=== PATIENT | female | born 1960 | race Caucasian/White ===

== ENCOUNTER → 2018-11-24 09:40 | Outpatient (CLI) | payer OTHER, SELFPAY ==
[2018-11-16 10:51] VITALS: BMI 32.8
[2018-11-24 10:52] LABS: AST(SGOT) 49 U/L (15-37); Alanine Aminotransfer ALT/SGPT 77 U/L (13-56); Albumin, Serum 4.2 g/dL (3.2-5.0); Alkaline Phosphatase 84 U/L (45-117); Anion Gap 8 (5-15); BUN 13 mg/dL (7-18); Calcium,Total 8.9 mg/dL (8.5-10.1); Chloride 104 mmol/L (98-107); Creatinine, Serum 0.76 mg/dL (0.55-1.02); EST Glomerular Filtration Rate 82 mL/min (>60); Est Glom Filt Rate - Afr Amer 99 mL/min (>60); Globulin 4.3 g/dL (2.2-4.2); Glucose 88 mg/dL (74-106); Potassium 3.6 mmol/L (3.5-5.1); Protein, Total 8.5 g/dL (6.4-8.2); Sodium Level 139 mmol/L (136-145)
== END ==
PROVIDERS: Family Provider Family Medicine; PCP Family Medicine; Referring Provider Family Medicine; Visit Provider Family Medicine
DX: I10 Essential (primary) hypertension (principal)
CPT/HCPCS: 36415; 80053; 84443

== ENCOUNTER → 2018-11-29 08:41 | Outpatient (CLI) | payer OTHER, SELFPAY ==
[2018-11-16 10:51] VITALS: BMI 32.8
--- NOTE | 2018-11-29 08:46 | US_ITS ---
STUDY: ABDOMINAL ULTRASOUND - RIGHT UPPER QUADRANT REASON FOR VISIT: Female, 58 years old. Elevated liver enzymes TECHNIQUE: Ultrasound evaluation of the right upper quadrant was performed with real-time and static mercedes-scale imaging. TECHNICAL QUALITY: Adequate. COMPARISON: None. FINDINGS: Liver: The liver measures 17.5 cm. Fatty infiltration of the liver The bile ducts are within normal limits. There is hepatic color flow. The direction of portal flow is hepatopetal. There is no demonstrated mass lesion. Gallbladder: Normal distended gallbladder. The gallbladder wall measures 2.0 mm. There is a negative sonographic Monaco's sign. There is no pericholecystic fluid. There are no gallstones. Common Bile Duct (C.B.D.): The common bile duct measures 4.0 mm. Pancreas: Normal size of the head, body and tail of the pancreas. There is normal echogenicity of the pancreas. There is no demonstrated pancreatic mass or cyst. Right Kidney: Normal size of the right kidney. The right kidney measures 10.6 x 5.8 x 4.5 cm. Normal renal cortex. The right cortex measures 1.6 cm. There is no demonstrated renal mass or cyst. There is no right hydronephrosis. US/Liver IMPRESSION: Fatty infiltration of the liver. No gallstones. Electronically Signed: Layo Sandoval MD at 7:40 EST Tel , Service support ,
== END ==
PROVIDERS: Family Provider Family Medicine; PCP Family Medicine; Referring Provider Family Medicine; Visit Provider Family Medicine
DX: I10 Essential (primary) hypertension (principal)
CPT/HCPCS: 76705

== ENCOUNTER → 2019-01-10 10:56 | Outpatient (CLI) | payer OTHER, SELFPAY ==
[2019-01-10 10:39] VITALS: BMI 32.5
[2019-01-10 12:45] LABS: AST(SGOT) 45 U/L (15-37); Alanine Aminotransfer ALT/SGPT 75 U/L (13-56); Alkaline Phosphatase 69 U/L (45-117); Bilirubin, Direct 0.07 mg/dL (0.00-0.30); Globulin 3.8 g/dL (2.2-4.2); Protein, Total 7.8 g/dL (6.4-8.2); T4 Free Direct 0.84 ng/dL (0.76-1.46)
[2019-01-11 17:38] LABS: Thyroid Peroxidase AB 130 IU/mL (0-34)
[2019-01-13 17:14] LABS: Thyroglobulin Antibody < 1.0 IU/mL (0.0-0.9)
== END ==
PROVIDERS: Family Provider Family Medicine; PCP Family Medicine; Visit Provider Family Medicine
DX: I10 Essential (primary) hypertension (principal); K76.0 Fatty (change of) liver, not elsewhere classified
CPT/HCPCS: 36415; 80076; 84439; 86376; 86800

== ENCOUNTER → 2020-08-12 | Outpatient (CLI) | payer OTHER, SELFPAY ==
[2019-09-07 09:54] VITALS: BMI 32.5
[2020-08-12 11:27] LABS: Anion Gap 8 (5-15); BUN 18 mg/dL (7-18); BUN/Creat Ratio 24.8 RATIO (10-20); Calcium,Total 9.1 mg/dL (8.5-10.1); Chloride 109 mmol/L (98-107); Creatinine, Serum 0.72 mg/dL (0.55-1.02); EST Glomerular Filtration Rate 87 mL/min (>60); Est Glom Filt Rate - Afr Amer 105 mL/min (>60); Free T3 2.4 pg/mL (2.18-3.98); Glucose 93 mg/dL (74-106); Potassium 4.1 mmol/L (3.5-5.1); Sodium Level 142 mmol/L (136-145); T4 Free Direct 0.84 ng/dL (0.76-1.46); Thyroid Stim Hormone (TSH) 8.84 uIU/mL (0.358-3.74)
== END | disposition home or self-care (01) ==
LOC: MTLAB 09:12
PROVIDERS: PCP Family Medicine
DX: E06.3 Autoimmune thyroiditis (principal); E66.9 Obesity, unspecified
CPT/HCPCS: 36415; 80048; 83036; 84439; 84443; 84481

== ENCOUNTER → 2021-02-24 09:06 | Outpatient (CLI) | payer OTHER, SELFPAY ==
[2020-10-24 09:14] VITALS: BMI 31.3
[2021-02-24 12:47] LABS: Hemoglobin A1c 6.1 % (3.8-5.6)
[2021-02-24 13:02] LABS: Anion Gap 4 (5-15); BUN 16 mg/dL (7-18); BUN/Creat Ratio 22.7 RATIO (10-20); Calcium,Total 8.6 mg/dL (8.5-10.1); Chloride 107 mmol/L (98-107); Creatinine, Serum 0.71 mg/dL (0.55-1.02); EST Glomerular Filtration Rate 89 mL/min (>60); Est Glom Filt Rate - Afr Amer 108 mL/min (>60); Free T3 2.6 pg/mL (2.18-3.98); Glucose 83 mg/dL (74-106); Sodium Level 140 mmol/L (136-145); T4 Free Direct 0.78 ng/dL (0.76-1.46); Thyroid Stim Hormone (TSH) 9.23 uIU/mL (0.358-3.74)
== END ==
PROVIDERS: PCP Family Medicine
DX: E06.3 Autoimmune thyroiditis (principal); R63.5 Abnormal weight gain
CPT/HCPCS: 36415; 80048; 83036; 84439; 84443; 84481

== ENCOUNTER → 2021-06-02 08:20 | Outpatient (CLI) | payer OTHER, SELFPAY ==
[2020-10-24 09:14] VITALS: BMI 31.3
[2021-06-02 12:16] LABS: Anion Gap 3 (5-15); BUN 17 mg/dL (7-18); BUN/Creat Ratio 25.7 RATIO (10-20); Chloride 107 mmol/L (98-107); Creatinine, Serum 0.66 mg/dL (0.55-1.02); EST Glomerular Filtration Rate 96 mL/min (>60); Est Glom Filt Rate - Afr Amer 116 mL/min (>60); Glucose 88 mg/dL (74-106); Potassium 4.2 mmol/L (3.5-5.1); Sodium Level 139 mmol/L (136-145)
[2021-06-02 12:19] LABS: Hemoglobin A1c 6.1 % (3.8-5.6)
== END ==
PROVIDERS: PCP Family Medicine; Referring Provider Internal Medicine Endocrinology, Diabetes & Metabolism; Visit Provider Internal Medicine Endocrinology, Diabetes & Metabolism
DX: R73.03 Prediabetes (principal)
CPT/HCPCS: 36415; 80048; 83036

== ENCOUNTER → 2021-09-09 08:13 | Outpatient (CLI) | payer OTHER, SELFPAY ==
[2021-09-09 12:39] LABS: Anion Gap 6 (5-15); BUN 13 mg/dL (7-18); BUN/Creat Ratio 17.1 RATIO (10-20); Chloride 106 mmol/L (98-107); Creatinine, Serum 0.76 mg/dL (0.55-1.02); EST Glomerular Filtration Rate 82 mL/min (>60); Est Glom Filt Rate - Afr Amer 99 mL/min (>60); Free T3 2.8 pg/mL (2.18-3.98); Glucose 87 mg/dL (74-106); Hemoglobin A1c 6.1 % (3.8-5.6); Potassium 4.4 mmol/L (3.5-5.1); Sodium Level 140 mmol/L (136-145); T4 Free Direct 0.82 ng/dL (0.76-1.46)
== END ==
DX: E06.3 Autoimmune thyroiditis (principal); E66.9 Obesity, unspecified; R63.5 Abnormal weight gain
CPT/HCPCS: 36415; 80048; 83036; 84439; 84443; 84481

== ENCOUNTER → 2022-03-12 | Outpatient (CLI) | payer OTHER, SELFPAY ==
[2022-03-12 12:29] LABS: Hemoglobin A1c 6.5 % (3.8-5.6)
[2022-03-12 12:46] LABS: Anion Gap 5 (5-15); BUN 12 mg/dL (7-18); BUN/Creat Ratio 15.7 RATIO (10-20); Calcium,Total 9.3 mg/dL (8.5-10.1); Chloride 107 mmol/L (98-107); Creatinine, Serum 0.76 mg/dL (0.55-1.02); EST Glomerular Filtration Rate 81 mL/min (>60); Est Glom Filt Rate - Afr Amer 98 mL/min (>60); Free T3 2.5 pg/mL (2.18-3.98); Glucose 94 mg/dL (74-106); Potassium 4.6 mmol/L (3.5-5.1); Sodium Level 139 mmol/L (136-145); T4 Free Direct 0.81 ng/dL (0.76-1.46); Thyroid Stim Hormone (TSH) 9.14 uIU/mL (0.358-3.74)
== END | disposition home or self-care (01) ==
LOC: BIMLAB 10:26
DX: E06.3 Autoimmune thyroiditis (principal); E66.9 Obesity, unspecified
CPT/HCPCS: 36415; 80048; 83036; 84439; 84443; 84481

== ENCOUNTER → 2022-06-19 | Outpatient (CLI) | payer OTHER, SELFPAY ==
[2022-06-19 12:47] LABS: Hemoglobin A1c 6.4 % (3.8-5.6)
[2022-06-19 12:56] LABS: Anion Gap 7 (5-15); BUN 20 mg/dL (7-18); BUN/Creat Ratio 29.5 RATIO (10-20); Calcium,Total 9.2 mg/dL (8.5-10.1); Chloride 106 mmol/L (98-107); Creatinine, Serum 0.68 mg/dL (0.55-1.02); EST Glomerular Filtration Rate 93 mL/min (>60); Est Glom Filt Rate - Afr Amer 113 mL/min (>60); Free T3 2.3 pg/mL (2.18-3.98); Glucose 93 mg/dL (74-106); Potassium 4.6 mmol/L (3.5-5.1); Sodium Level 140 mmol/L (136-145); T4 Free Direct 0.75 ng/dL (0.76-1.46); Thyroid Stim Hormone (TSH) 8.52 uIU/mL (0.358-3.74)
== END | disposition home or self-care (01) ==
LOC: BIMLAB 09:24
PROVIDERS: PCP Family Medicine
DX: E66.9 Obesity, unspecified (principal); E06.3 Autoimmune thyroiditis
CPT/HCPCS: 36415; 80048; 83036; 84439; 84443; 84481

== ENCOUNTER → 2022-10-20 | Outpatient (CLI) | payer OTHER, SELFPAY ==
[2022-10-20 13:21] LABS: Hemoglobin A1c 6.2 % (3.8-5.6)
[2022-10-20 13:27] LABS: Anion Gap 10 (5-15); BUN 16 mg/dL (7-18); BUN/Creat Ratio 20.2 RATIO (10-20); Calcium,Total 9.2 mg/dL (8.5-10.1); Chloride 105 mmol/L (98-107); Creatinine, Serum 0.79 mg/dL (0.55-1.02); EST Glomerular Filtration Rate 78 mL/min (>60); Est Glom Filt Rate - Afr Amer 94 mL/min (>60); Free T3 2.5 pg/mL (2.18-3.98); Glucose 90 mg/dL (74-106); Potassium 4.1 mmol/L (3.5-5.1); Sodium Level 139 mmol/L (136-145); T4 Free Direct 0.78 ng/dL (0.76-1.46); Thyroid Stim Hormone (TSH) 7.94 uIU/mL (0.358-3.74)
== END | disposition home or self-care (01) ==
PROVIDERS: PCP Family Medicine; Visit Provider Family Medicine
DX: R63.5 Abnormal weight gain (principal); E06.3 Autoimmune thyroiditis; E66.9 Obesity, unspecified
CPT/HCPCS: 36415; 80048; 83036; 84439; 84443; 84481

== ENCOUNTER → 2023-03-05 | Outpatient (CLI) | payer OTHER, SELFPAY ==
[2023-03-05 12:50] LABS: Hemoglobin A1c 6.5 % (3.8-5.6)
[2023-03-05 12:59] LABS: Anion Gap 6 (5-15); BUN 18 mg/dL (7-18); Calcium,Total 9.4 mg/dL (8.5-10.1); Chloride 105 mmol/L (98-107); Creatinine, Serum 0.75 mg/dL (0.55-1.02); EST Glomerular Filtration Rate 83 mL/min (>60); Est Glom Filt Rate - Afr Amer 100 mL/min (>60); Free T3 2.5 pg/mL (2.18-3.98); Glucose 92 mg/dL (74-106); Potassium 5.1 mmol/L (3.5-5.1); Sodium Level 139 mmol/L (136-145); T4 Free Direct 0.81 ng/dL (0.76-1.46); Thyroid Stim Hormone (TSH) 6.64 uIU/mL (0.358-3.74)
== END | disposition home or self-care (01) ==
LOC: BIMLAB 09:06
PROVIDERS: PCP Family Medicine
DX: R63.5 Abnormal weight gain (principal); E66.9 Obesity, unspecified; E06.3 Autoimmune thyroiditis
CPT/HCPCS: 36415; 80048; 83036; 84439; 84443; 84481

== ENCOUNTER → 2023-09-02 | Outpatient (CLI) | payer OTHER, SELFPAY ==
[2023-09-02 12:46] LABS: Anion Gap 4 (5-15); BUN 19 mg/dL (7-18); Calcium,Total 9.2 mg/dL (8.5-10.1); Chloride 106 mmol/L (98-107); Creatinine, Serum 0.76 mg/dL (0.55-1.02); EST Glomerular Filtration Rate 81 mL/min (>60); Est Glom Filt Rate - Afr Amer 98 mL/min (>60); Glucose 96 mg/dL (74-106); Potassium 4.7 mmol/L (3.5-5.1); Sodium Level 140 mmol/L (136-145)
[2023-09-02 13:02] LABS: Hemoglobin A1c 6.1 % (3.8-5.6)
== END | disposition home or self-care (01) ==
LOC: BIMLAB 09:36
PROVIDERS: PCP Family Medicine; Referring Provider Family Medicine; Visit Provider Family Medicine
DX: I10 Essential (primary) hypertension (principal); R73.03 Prediabetes
CPT/HCPCS: 36415; 80048; 83036

== ENCOUNTER → 2024-07-19 | Outpatient (CLI) | payer OTHER, SELFPAY ==
[2024-07-19 12:31] LABS: Hemoglobin A1c 6.3 % (3.8-5.6)
[2024-07-19 12:54] LABS: ALB/GLOB Ratio 1.1 RATIO (0.9-2.4); AST(SGOT) 20 U/L (15-37); Alanine Aminotransfer ALT/SGPT 31 U/L (13-56); Albumin, Serum 3.9 g/dL (3.2-5.0); Alkaline Phosphatase 70 U/L (45-117); Anion Gap 6 (5-15); BUN 14 mg/dL (7-18); Calcium,Total 9.5 mg/dL (8.5-10.1); Chloride 105 mmol/L (98-107); Creatinine, Serum 0.82 mg/dL (0.55-1.02); EST Glomerular Filtration Rate 74 mL/min (>60); Est Glom Filt Rate - Afr Amer 89 mL/min (>60); Globulin 3.6 g/dL (2.2-4.2); Glucose 96 mg/dL (74-106); Potassium 4.4 mmol/L (3.5-5.1); Protein, Total 7.5 g/dL (6.4-8.2); Sodium Level 140 mmol/L (136-145)
== END | disposition home or self-care (01) ==
LOC: BIMLAB 08:58
PROVIDERS: PCP Family Medicine; Referring Provider Family Medicine; Visit Provider Family Medicine
DX: E03.9 Hypothyroidism, unspecified (principal); I10 Essential (primary) hypertension; R73.03 Prediabetes
CPT/HCPCS: 36415; 80053; 83036; 84443

== ENCOUNTER → 2025-03-08 | Outpatient (CLI) | payer OTHER, SELFPAY | END | disposition home or self-care (01) | LOC: BIMLAB 09:14 | PROVIDERS: PCP Family Medicine; Referring Provider Family Medicine; Visit Provider Family Medicine | DX: E03.9 Hypothyroidism, unspecified (principal) | CPT/HCPCS: 36415; 84439; 84443 ==

== ENCOUNTER → 2025-07-03 | Outpatient (CLI) | payer OTHER, SELFPAY ==
--- OUTSIDE RECORDS SUMMARY | 2025-07-03 17:56 | XMS RPT_ITS | CCD ---
Author Organization [facility] Care Team Providers Care Occupational Therapy Professor Name Role Phone JIL GENTILE DO Primary Care Physician Dr. Jil Gentile Attending Provider [phone] Dr. Jil Gentile Primary Care Provider [phone] Dr. Jil Gentile Attending Provider [phone] Dr. Jil Gentile Referring Provider [phone] Dr. Jil Gentile DO Primary Care Provider Dr. Jil Gentile DO Attending Provider [phone] Dr. Jil Gentile DO Referring Provider [phone] Sixto Cedillo Attending Provider [phone] Brown, Jil R Referring Unavailable Brown, Jil R Primary Care Unavailable Brown, Jil R Attending Unavailable Brown, Jil R Primary Care Unavailable Brown, Jil R Attending Unavailable Brown, Jil R Referring Unavailable Brown, Jil R Primary Care Unavailable Brown, Jil R Attending Unavailable Brown, Jil R Referring Unavailable Brown, Jil R Primary Care Unavailable Brown, Jil R Attending Unavailable Brown, Jil R Referring Unavailable Brown, Jil R Primary Care Unavailable Sixto Cedillo Attending Unavailable Seferino, Jil R Referring Unavailable Medications Current Medications Medication Drug Class(es) Dates Sig (Normalized) Sig (Original) levothyroxine sodium 0.05 mg oral tablet (1 source) l-Thyroxine Start: 08-07-2016 levothyroxine 50 mcg (0.05 mg) oral tablet Dose : 50 mcg = 1 tab(s), Oral, qDayAC, 0 Refill(s) Start Date: 08/07/16 Status: Ordered Tirzepatide (Weight Loss) (1 source) Start: 05-22-2025 Tirzepatide (Weight Loss) 5 mg/0.5 mL solution Active 5 mg SC EVERY WEEK May 22, 2025 4:01pm Phone number [phone] [email or web address] Completed/Discontinued Medications Medication Drug Class(es) Dates Sig (Normalized) Sig (Original) lisinopril 20 mg oral tablet (20 sources) Angiotensin Converting Enzyme Inhibitor Start: 11-16-2018 End: 04-27-2025 take 1 tablet by mouth once daily Lisinopril 20 mg tablet Discontinued 20 mg PO DAILY 90 0 April 21, 2023 4:55pm May 20, 2023 2:02pm Hypertension Essential (primary) hypertension blood pressure thyroid (assisted) 15 mg oral tablet (9 sources) Start: 09-07-2019 End: 10-24-2020 take 1 tablet by mouth once daily Thyroid (Pork) (Hutchinson Thyroid) 15 mg tablet Discontinued 15 mg PO DAILY September 07, 2019 1:00am October 24, 2020 10:11am Tirzepatide (Mounjaro) 2.5 mg/0.5 mL pen injector (4 sources) Start: 03-13-2025 End: 04-04-2025 Tirzepatide (Mounjaro) 2.5 mg/0.5 mL pen injector Discontinued 2.5 mg SC EVERY WEEK 2 March 13, 2025 12:00am April 04, 2025 1:45pm for 4 weeks Start: 03-13-2025 Tirzepatide (M ounjaro) 2.5 mg/0.5 mL pen injector Active 2.5 mg SC EVERY WEEK 2 March 13, 2025 12:00am for 4 weeks Tirzepatide (Weight Loss) (6 sources) Start: 04-27-2025 End: 05-22-2025 Tirzepatide (Weight Loss) (Z epbound) 2.5 mg/0.5 mL solution Discontinued 2.5 mg SC EVERY WEEK April 27, 2025 10:02am May 22, 2025 4:02pm Phone number [phone] [email or web address] Start: 04-27-2025 Tirzepatide (W eight Loss) (Zepbound) 2.5 mg/0.5 mL solution Active 2.5 mg SC EVERY WEEK 2 28 2 April 27, 2025 10:02am Phone number [phone] [email or web address] Start: 04-04-2025 End: 04-27-2025 Tirzepatide (Weight Loss) (Z epbound) 2.5 mg/0.5 mL solution Discontinued 2.5 mg SC EVERY WEEK 2 28 0 April 04, 2025 1:46pm May 01, 2025 12:00am April 27, 2025 10:03am Phone number [phone] [email or web address] Start: 04-04-2025 End: 04-04-2025 Tirzepatide (Weight Loss) (Z epbound) 2.5 mg/0.5 mL solution Discontinued 2.5 mg SC EVERY WEEK 2 28 0 April 04, 2025 12:00am May 01, 2025 12:00am April 04, 2025 1:47pm Problems Problem Classification Problem Date Documented Date Episodic/Chronic Diabetes mellitus without complication (17 sources) Prediabetes; Translations: [Prediabetes] Onset: 03-13-2025 Episodic Comment on above: She cannot continue to afford the $500 a month for Zepbound and is investigating getting molecule from unapproved sources. Essential hypertension (18 sources) Hypertensive disorder; Translations: [Essential (primary) hypertension] Onset: 07-19-2024 Chronic Fluid and electrolyte disorders (1 source) Dehydration; Translations: [Dehydration] Onset: 10-05-2021 Episodic Other connective tissue disease (7 sources) Trochanteric bursitis; Translations: [Trochanteric bursitis, left hip] 07-19-2024 Episodic Other liver diseases (2 sources) Non-alcoholic fatty liver; Translations: [Fatty (change of) liver, not elsewhere classified] Chronic Other liver diseases (12 sources) Fatty (change of) liver, not elsewhere classified; Translations: [Nonalcoholic fatty liver disease] 01-10-2019 Chronic Other non-traumatic joint disorders (4 sources) Pain in left knee; Translations: [Left knee pain] 07-19-2024 Episodic Other screening for suspected conditions (not mental disorders or infectious disease) (10 sources) Raised TSH level; Translations: [Other specified abnormal findings of blood chemistry] 01-10-2019 Episodic Thyroid disorders (14 sources) Hypothyroidism; Translations: [Hypothyroidism, unspecified] Onset: 03-13-2025 09-07-2019 Chronic Results Test Name Value Interpretation Reference Range Facility Internal Medicine Office Vis rajni 04-27-2025 Internal Medicine Office Visit [facility] [address] [place] [address] OFFICE VISIT Date of Service: 04/27/25 MR#: [id number] Acct: [id number] Name: ETELVINA BUTCHER Rep #: [id number] : 1960 Provider: JEFERSON Whittaker Age/Sex: 64/F Location: [facility] Status: Signed Intake Vital Signs 03/13/25 09:30 04/27/25 09:35 Height 5 ft 6 in 5 ft 6 in Weight: 197 lb 181 lb BMI 31.8 29.2 BP 144/92 H 124/78 H Blood Pressure Location Lt brachial Lt brachial Position Sitting Sitting Respiration 18 16 Pulse 69 61 Pulse Source Monitor Monitor Temp 98.0 F 97.9 F Temp Source Temporal Temporal Pulse Oximetry (%) 97 97 Oxygen Delivery Method room air Intake Visit Reasons: ACUTE - 7 WK FU Chief Complaint: F/U Ui Developer With Angular Js Required: No Accompanied by: Self Is patient in pain?: No Allergies No Known Allergies Allergy (Verified 04/27/25 09:36) Medications ???Medication ???Instructions ???Recorded ???Confirmed ???Type tirzepatide (weight loss) 2.5 2.5 mg (0.5 mL) subcut QWEEK 4 09/1104/27/25 Rx mg/0.5 mL subcutaneous solution weeks #2 mL (Zepbound) Have you fallen in the past year?: No Nurse's Note: F/U for Zepbound [facility] Medical History Hypothyroid Hypertension Surgical History History of breast biopsy Family History Grandmother Hypertension CVA (cerebral vascular accident) Aunt Hypertension Social History Smoking Status: Never smoker alcohol intake: never substance use type: does not use what type of physical activity do you participate in: walking HPI HPI Chief Complaint: F/U Details: ETELVINA BUTCHER, is a 64 F who presents to the office today for f/u after starting zepbound about 2 months ago and was told to f/u. Patient has been taking the shot without any side effects or tolerance issues. She states she has been trying to do better with her dietary intake. She states that it has never been real good but with the medication she is definitely eating less. She is not really doing a lot of regular exercise at the same time is going to be trying to increase this. She has continued to show decrease in her weight and thus is happy. She states as soon as she started the Zepbound her blood pressure improved and she ended up stopping her BP medication and has not gone back to it (so been off for 2 months) ROS Const Constitutional: No body ache, chills, excessive sweating, fatigue, fever(s), frequent falls, headache(s), snoring, weakness, weight change, sleep problems or change in appetite Eyes Eyes: No blurry vision, change in vision, eye pain or Light sensitivity ENT ENT: No abnormal hearing, ear or mastoid pain, tinnitus, nasal congestion, headache(s), neck pain or sore throat Resp Respiratory: No cough, shortness of breath, snoring or wheezing Cardio Cardiology: No chest pain at rest, chest pain with exertion, excessive sweating, shortness of breath, lightheadedness, orthopnea or palpitations Gastro GI: No abdominal pain, change in bowel habits, constipation, cramping, diarrhea, nausea/dyspepsia or vomiting Genitourinary-Fem evita: No burning urination, painful urination, urinary incontinence, urinary frequency, abnormal vaginal bleeding or pelvic pain Musc Musculoskeletal: No abnormal gait, joint pain, back pain, limited range of motion, neck pain, numbness or tingling Skin Skin: No dry skin, redness, lesions, itchy eyes, rash or wounds Neuro Neurology: No abnormal gait, abnormal hearing, abnormal speech, dizziness, weakness, frequent falls, headache(s), memory loss, numbness or tingling Psych Psychiatric: No anxiety, No change in appetite, No depression, No memory loss and No Thoughts of harming yourself/Others Endo Endocrine: No cold intolerance, excessive sweating, fatigue, flushing, heat intolerance, increased thirst/drinking, increased hunger or weight change Aller/Imm Allergy/Immunolog ic: No itchy eyes, seasonal allergy symptoms, hives or wheezing Massimo/Lymp Hematologic/Lymph atic: No easy bleeding, easy bruising, enlarged lymph nodes or other Exam Const General: cooperative, healthy appearing, comfortable, no acute distress, well developed and well groomed Nutritional Appearance: overweight Orientation: alert, awake and oriented x3 HENMT Head: normocephalic and atraumatic Ears: hearing grossly normal bilaterally Neck Neck: no lymphadenopathy, supple and nontender Resp Effort Inspection: normal respiratory effort, able to speak in complete sentences, symmetric chest movement and normal respiratory pattern Auscultation: Bilateral: Clear to Auscultation Cardio Rate: regular rate (more content not included)... Normal [facility] Internal Medicine Office Vis itogopal 03-13-2025 Internal Medicine Office Visit [facility] [address] [place] [address] [place] [address] OFFICE VISIT Date of Service: 03/13/25 MR#: [id number] Acct: [id number] Name: ETELVINA BUTCHER Rep #: [id number] : 1960 Provider: Dr. Jil pace, DO Age/Sex: 64/F Location: [facility] [place] Status: Signed Intake Vital Signs 07/19/24 08:31 03/13/25 09:30 Height 5 ft 6 in 5 ft 6 in Weight: 197 lb 197 lb BMI 31.8 31.8 BP 144/86 H 144/92 H Blood Pressure Location Lt brachial Lt brachial Position Sitting Sitting Respiration 17 18 Pulse 74 69 Pulse Source Monitor Monitor Temp 97.6 F L 98.0 F Temp Source Temporal Temporal Pulse Oximetry (%) 100 97 Oxygen Delivery Method room air room air Intake Visit Reasons: go over labs Chief Complaint: go over labs Is patient in pain?: No Allergies No Known Allergies Allergy (Verified 03/13/25 09:30) Medications ???Medication ???Instructions ???Recorded ???Confirmed ???Type lisinopril 20 mg tablet 20 mg PO DAILY blood pressure #90 07/19/24 03/13/25 Rx tabs tirzepatide 2.5 mg/0.5 mL 2.5 mg (0.5 mL) subcut QWEEK #2 mL 03/13/25 03/13/25 Rx subcutaneous pen injector (Mounjaro) Have you fallen in the past year?: No Nurse's Note: Patient provided sample box of Mounjaro 2.5 mg. This nurse instructed patient on self- administration; patient administered first injection correctly without any difficulty. Patient advised to schedule FU in 6-[address] Gentile and to call with any concerns before then. Patient verbalized understanding. Prior authorization process for Mounjaro reviewed with patient. [facility] Medical History Hypothyroid Hypertension Surgical History History of breast biopsy Family History Grandmother Hypertension CVA (cerebral vascular accident) Aunt Hypertension Social History Smoking Status: Never smoker alcohol intake: never substance use type: does not use what type of physical activity do you participate in: walking HPI HPI Chief Complaint: go over labs Details: ETELVINA BUTCHER, is a 64 F who presents to the office today for a visit to start Mounjaro for her diabetes. Her hemoglobin A1c's are stable but she is 200 pounds and easily 50 pounds overweight she has tried to lose weight but has been unsuccessful so she wants to start Mounjaro to control her blood sugars as well as to lose weight. ROS Const Constitutional: No body ache, chills, excessive sweating, fatigue, fever(s), frequent falls, headache(s), snoring, weight change, sleep problems, abnormal sleep pattern or change in appetite Eyes Eyes: No blurry vision, change in vision, eye pain or Light sensitivity ENT ENT: No abnormal hearing, ear or mastoid pain, tinnitus, nasal congestion, headache(s), neck pain or sore throat Resp Respiratory: No cough, shortness of breath, snoring or wheezing Cardio Cardiology: No chest pain at rest, chest pain with exertion, excessive sweating, shortness of breath, dyspnea on exertion, lightheadedness, orthopnea or palpitations Gastro GI: No abdominal pain, change in bowel habits, constipation, cramping, diarrhea, nausea/dyspepsia or vomiting Genitourinary-Fem evita: No burning urination, painful urination, urinary incontinence, urinary frequency, abnormal vaginal bleeding or pelvic pain Musc Musculoskeletal: No abnormal gait, joint pain, back pain, limited range of motion, neck pain, numbness or tingling Skin Skin: No dry skin, redness, lesions, itchy eyes, rash or wounds Neuro Neurology: No abnormal gait, abnormal hearing, frequent falls, headache(s), memory loss, numbness or tingling Psych Psychiatric: No abnormal sleep pattern, No anxiety, No change in appetite, No irritability, No memory loss and No Thoughts of harming yourself/Others Endo Endocrine: No cold intolerance, excessive sweating, fatigue, flushing, heat intolerance, increased thirst/drinking, increased hunger or weight change Aller/Imm Allergy/Immunolog ic: No itchy eyes, seasonal allergy symptoms, hives or wheezing Massimo/Lymp Hematologic/Lymph atic: No easy bleeding, easy bruising, enlarged lymph nodes or other Exam Const General: cooperative and healthy appearing Nutritional Appearance: overweight HENMT Head: normal to inspection Ears: hearing grossly normal bilaterally Eyes General: appearance normal, both eyes and all related structures Neck Neck: normal visual inspection Resp Effort Inspection: normal respiratory effort and able to speak in complete sentences Cardio Rate: regular rate Rhythm: regular rhythm Musc Musculoskeletal: Yes joint tenderness (Mild discomfo (more content not included)... Normal [facility] - Hematology and Cell countsOrdered By: Jil Gentile on 03-13-2025 HbA1c (Bld) [Mass fraction] 6.2 % 4.2-6.3 [facility] T4 Free Directon 03-08-2025 T4 FREE DIRECT 0.90 ng/dL Normal 0.76-1.46 [facility] Comment on above: Performed By: #### L 506.0400, L501.9520 #### [facility] [place], [address] T4 freeOrdered By: Jil arreola on 03-08-2025 Free T4 [Mass/Vol] 0.90 ng/dL 0.76-1.46 [facility] TSH DL <= 0.005 mIU/L QnOrde red By: Jil Gentile on 03-08-2025 TSH Qn 6.830 uIU/mL High 0.300-4.200 [facility] Thyroid Stim Hormone (TSH)on 03-08-2025 TSH 6.830 uIU/mL High 0.300-4.200 [facility] Comment on above: Performed By: #### L 506.0400, [id number] #### [facility] [address] [place], [address] Comprehensive Metabolic Prof uton 07-19-2024 Albumin [Mass/Vol] 3.9 g/dL Normal 3.2-5.0 [facility] Comment on above: Performed By: #### L 500.4050, L501.9985, [id number] #### [facility] [address] [place], [address] Albumin/Globulin [Mass ratio] 1.1 {ratio} Normal 0.9-2.4 [facility] Comment on above: Performed By: #### L 500.4050, L501.9985, [id number] #### [facility] [address] [place], [address] ALK P 70 U/L Normal 45-117 [facility] Comment on above: Performed By: #### L 500.4050, L501.9985, [id number] #### [facility] [address] [place], [address] ALT [Catalytic activity/Vol] 31 U/L Normal 13-56 [facility] Comment on above: Performed By: #### L 500.4050, L501.9985, [id number] #### [facility] [address] [place], [address] AST [Catalytic activity/Vol] 20 U/L Normal 15-37 [facility] Comment on above: Performed By: #### L 500.4050, L501.9985, [id number] #### [facility] [address] [place], [address] Bilirubin [Mass/Vol] 0.50 mg/dL Normal 0.20-1.00 [facility] Comment on above: Result Comment: For patients on eltrombopag therapy, use of Dimension [place] TBIL is not recommended. Performed By: #### L 500.4050, L501.9985, [id number] #### [facility] [address] [place], [address] BUN/CRE 17.0 RATIO Normal 10-20 [facility] Comment on above: Performed By: #### L 500.4050, [id number], [id number] #### [facility] [address] [place], [address] CA,Total 9.5 mg/dL Normal 8.5-10.1 [facility] Comment on above: Performed By: #### L 500.4050, [id number], [id number] #### [facility] [address] [place], [address] Chloride [Moles/Vol] 105 mmol/L Normal 98-107 [facility] Comment on above: Performed By: #### L 500.4050, [id number], [id number] #### [facility] [address] [place], [address] CO2 [Moles/Vol] 29.0 mmol/L Normal 21.0-32.0 [facility] Comment on above: Performed By: #### L 500.4050, L501.9985, [id number] #### [facility] [address] [place], [address] Creatinine [Mass/Vol] 0.82 mg/dL Normal 0.55-1.02 [facility] Comment on above: Result Comment: The validity of the calculated GFR GFRAA in patients over 70 years has not been determined. Clinical correlation is essential. Performed By: #### L 500.4050, L501.9985, [id number] #### [facility] [address] [place], [address] EST GFR - AA 89 mL/min Normal >60 [facility] Comment on above: Result Comment: Afri can [place] Citizen GFR Calc Performed By: #### L 500.4050, L501.9985, [id number] #### [facility] [address] [place], [address] GAP 6 Normal 5-15 [facility] Comment on above: Performed By: #### L 500.4050, [id number], [id number] #### [facility] [address] [place], [address] GFR/1.73 sq M.predicted among non-blacks MDRD (S/P/Bld) [Vol rate/Area] 74 mL/min/{1.73_m2} Normal >60 [facility] Comment on above: Result Comment: Non- GFR Calc Performed By: #### L 500.4050, L501.9985, L501.9520 #### [facility] [address] [place], [address] Globulin (S) [Mass/Vol] 3.6 g/dL Normal 2.2-4.2 [facility] Comment on above: Performed By: #### L 500.4050, L501.9985, [id number] #### [facility] [address] [place], [address] Glucose [Mass/Vol] 96 mg/dL Normal 74-106 [facility] Comment on above: Performed By: #### L 500.4050, [id number], [id number] #### [facility] [address] [place], [address] Potassium [Moles/Vol] 4.4 mmol/L Normal 3.5-5.1 [facility] Comment on above: Performed By: #### L 500.4050, L501.9985, [id number] #### [facility] [address] [place], [address] Sodium [Moles/Vol] 140 mmol/L Normal 136-145 [facility] Comment on above: Performed By: #### L 500.4050, [id number], [id number] #### [facility] [address] [place], [address] T PROT 7.5 g/dL Normal 6.4-8.2 [facility] Comment on above: Performed By: #### L 500.4050, L501.9985, [id number] #### [facility] [address] [place], [address] Urea nitrogen [Mass/Vol] 14 mg/dL Normal 7-18 [facility] Comment on above: Performed By: #### L 500.4050, L501.9985, [id number] #### [facility] [address] [place], [address] Hemoglobin A1con 07-19-2024 HbA1c (Bld) [Mass fraction] 6.3 % High 3.8-5.6 [facility] Comment on above: Result Comment: Norm al < 5.7 % Prediabetic 5.7 - 6.4 % Diabetic >or= 6.5 % Please note range changes. Performed By: #### L 500.4050, L501.9985, L501.9520 #### [facility] [address] [place], [address] Internal Medicine Office Vis rajni 07-19-2024 Internal Medicine Office Visit [facility] [address] [place] [address] [place] [address] OFFICE VISIT Date of Service: 07/19/24 MR#: [id number] Acct: [id number] Name: ETELVINA BUTCHER Rep #: [id number] : 1960 Provider: Dr. Jil pace DO Age/Sex: 64/F Location: [facility] Status: Signed Intake Vital Signs 05/20/23 13:55 07/19/24 08:31 Height 5 ft 6 in 5 ft 6 in Weight: 197 lb BMI 31.8 BP 144/86 H Blood Pressure Location Lt brachial Position Sitting Respiration 17 Pulse 74 Pulse Source Monitor Temp 97.6 F L Temp Source Temporal Pulse Oximetry (%) 100 Oxygen Delivery Method room air Intake Visit Reasons: BP MED FOLLOW UP Chief Complaint: BP MED FOLLOW UP Is patient in pain?: No Allergies No Known Allergies Allergy (Verified 07/19/24 08:33) Medications ???Medication ???Instructions ???Recorded ???Confirmed ???Type lisinopril 20 mg tablet 20 mg PO DAILY blood pressure #90 07/19/24 07/19/24 Rx tabs Have you fallen in the past year?: No Nurse's Note: pt states that she has pain and discomfort in her bilat legs when standing up states this has been flaring up the past couple months pt denies pain right now however states when standing the pain will be a 4-5. [facility] Medical History (Updated 07/19/24 @ 09:[address] Jil Gentile DO) Hypothyroid Hypertension Surgical History History of breast biopsy Family History Grandmother Hypertension CVA (cerebral vascular accident) Aunt Hypertension Social History Smoking Status: Never smoker alcohol intake: never substance use type: does not use what type of physical activity do you participate in: walking HPI HPI Chief Complaint: BP MED FOLLOW UP Details: ETELVINA BUTCHER, is a 64 F who presents to the office today for follow-up on her blood pressure medicine. She says her blood pressures have consistently been good however sometimes when they get low normal she feels a little bit off and takes only half of her blood pressure pill. I told her that is not a terribly logical thing to do since this is a slow acting long-term medicine and it is more appropriate just to take the medicine on a constant basis. She also complains of some hip pain over the left trochanteric bursa. And some medial right knee pain. ROS Const Constitutional: No body ache, chills, excessive sweating, fatigue, fever(s), frequent falls, headache(s), snoring, weight change, sleep problems, abnormal sleep pattern or change in appetite Eyes Eyes: No blurry vision, change in vision, eye pain or Light sensitivity ENT ENT: No abnormal hearing, ear or mastoid pain, tinnitus, nasal congestion, headache(s), neck pain or sore throat Resp Respiratory: No cough, shortness of breath, snoring or wheezing Cardio Cardiology: No chest pain at rest, chest pain with exertion, excessive sweating, shortness of breath, dyspnea on exertion, lightheadedness, orthopnea or palpitations Gastro GI: No abdominal pain, change in bowel habits, constipation, cramping, diarrhea, nausea/dyspepsia or vomiting Genitourinary-Fem evita: No burning urination, painful urination, urinary incontinence, urinary frequency, abnormal vaginal bleeding or pelvic pain Musc Musculoskeletal: No abnormal gait, joint pain, back pain, limited range of motion, neck pain, numbness or tingling Skin Skin: No dry skin, redness, lesions, itchy eyes, rash or wounds Neuro Neurology: No abnormal gait, abnormal hearing, frequent falls, headache(s), memory loss, numbness or tingling Psych Psychiatric: No abnormal sleep pattern, No anxiety, No change in appetite, No irritability, No memory loss and No Thoughts of harming yourself/Others Endo Endocrine: No cold intolerance, excessive sweating, fatigue, flushing, heat intolerance, increased thirst/drinking, increased hunger or weight change Aller/Imm Allergy/Immunolog ic: No itchy eyes, seasonal allergy symptoms, hives or wheezing Massimo/Lymp Hematologic/Lymph atic: No easy bleeding, easy bruising, enlarged lymph nodes or other Exam Const General: cooperative and healthy appearing Nutritional Appearance: overweight HENMT Head: normal to inspection Ears: hearing grossly normal bilaterally Eyes General: appearance normal, both eyes and all related structures Neck Neck: normal visual inspection Resp Effort Inspection: normal respiratory effort and able to speak in complete sentences Cardio Rate: regular rate Rhythm: regular rhythm Musc Musculoskeletal: Yes joint tenderness (Mild discomfort over the left trochanteric bursa); No joint redness, joint warmth or decreased range of motion Skin General: no rashes or lesions not (more content not included)... Normal [facility] Thyroid Stim Hormone (TSH)on 07-19-2024 TSH 6.490 uIU/mL High 0.358-3.740 [facility] Comment on above: Performed By: #### L 500.4050, L501.9985, L501.9520 #### [facility] [address] [place], [address] Basophil percentageOrdered B y: Jil Gentile on 09-02-2023 Chloride [Moles/Vol] 106 mmol/L 98-107 [facility] Glucose [Mass/Vol] 96 mg/dL 74-106 [facility] Potassium [Moles/Vol] 4.7 mmol/L 3.5-5.1 [facility] Sodium [Moles/Vol] 140 mmol/L 136-145 [facility] - Chemistry and C hemistry - challengeOrdered By: Jil Gentile on 09-02-2023 CO2 [Moles/Vol] 30.0 mmol/L 21.0-32.0 [facility] Urea nitrogen/Creatinine [Mass ratio] 25.0 mg/mg - [facility] No Panel InformationOrdered By: Jil Gentile on 09-02-2023 Estimated GFR (MDRD) Amer 98 mL/min >60 [facility] Comment on above: GFR Calc Estimated GFR (MDRD) Non-Af Amer 81 mL/min >60 [facility] Comment on above: Non- GFR Calc Serum or plasma calcium fay urement (mass/volume)Ordered By: Jil Gentile on 09-02-2023 Calcium [Mass/Vol] 9.2 mg/dL 8.5-10.1 [facility] Serum or plasma creatinine m easurement (mass/volume)Ordered By: Jil Gentile on 09-02-2023 Creatinine [Mass/Vol] 0.76 mg/dL 0.55-1.02 [facility] Comment on above: The validity of the calculated GFR & GFRAA in patients over 70 years has not been determined. Clinical correlation is essential. Serum or plasma urea nitroge n measurement (mass/volume)Ordered By: Jil Gentile on 09-02-2023 Urea nitrogen [Mass/Vol] 19 mg/dL 7-18 [facility] Thin prep Papanicolaou smear with manual screeningOrdered By: Jil Gentile on 09-02-2023 Thin prep Papanicolaou smear with manual screening 4 5-15 [facility] Whole blood hemoglobin A1c/t otal hemoglobin ratio (mass fraction)Ordered By: Jil Gentile on 09-02-2023 HbA1c (Bld) [Mass fraction] 6.1 % 3.8-5.6 [facility] Comment on above: Normal < 5.7 % Predi abetic 5.7 - 6.4 % Diabetic >or= 6.5 % Please note range changes. Basophil percentageon 2022 Chloride [Moles/Vol] 105 mmol/L 98-107 [facility] Glucose [Mass/Vol] 92 mg/dL 74-106 [facility] Potassium [Moles/Vol] 5.1 mmol/L 3.5-5.1 [facility] Sodium [Moles/Vol] 139 mmol/L 136-145 [facility] - Chemistry and C hemistry - challengeon 03-05-2023 CO2 [Moles/Vol] 28.0 mmol/L 21.0-32.0 [facility] Free T4 [Mass/Vol] 0.81 ng/dL 0.76-1.46 [facility] Urea nitrogen/Creatinine [Mass ratio] 24.0 mg/mg 10- [facility] No Panel Informationon 03-05 Estimated GFR (MDRD) Amer 100 mL/min >60 [facility] Comment on above: GFR Calc Estimated GFR (MDRD) Non-Af Amer 83 mL/min >60 [facility] Comment on above: Non- GFR Calc Free Triiodothyronine (T3) pg/dL 2.5 pg/mL 2.18-3.98 [facility] Thyroid Stimulating Hormone (TSH) 6.64 uIU/mL 0.358-3.74 [facility] Serum or plasma calcium fay urement (mass/volume)on 03-05-2023 Calcium [Mass/Vol] 9.4 mg/dL 8.5-10.1 [facility] Serum or plasma creatinine m easurement (mass/volume)on 03-05-2023 Creatinine [Mass/Vol] 0.75 mg/dL 0.55-1.02 [facility] Comment on above: The validity of the calculated GFR & GFRAA in patients over 70 years has not been determined. Clinical correlation is essential. Serum or plasma urea nitroge n measurement (mass/volume)on 03-05-2023 Urea nitrogen [Mass/Vol] 18 mg/dL 05-04 [facility] Thin prep Papanicolaou smear with manual screeningon 03-05-2023 Thin prep Papanicolaou smear with manual screening 6 03-01 [facility] Whole blood hemoglobin A1c/t otal hemoglobin ratio (mass fraction)on 03-05-2023 HbA1c (Bld) [Mass fraction] 6.5 % 3.8-5.6 [facility] Comment on above: Normal < 5.7 % Predi abetic 5.7 - 6.4 % Diabetic >or= 6.5 % Please note range changes. Basophil percentageOrdered B y: Dr. Gentile on 10-20-2022 Chloride [Moles/Vol] 105 mmol/L 98-107 [facility] Glucose [Mass/Vol] 90 mg/dL 74-106 [facility] Potassium [Moles/Vol] 4.1 mmol/L 3.5-5.1 [facility] Sodium [Moles/Vol] 139 mmol/L 136-145 [facility] - Chemistry and C hemistry - challengeOrdered By: Dr. Gentile on 10-20-2022 CO2 [Moles/Vol] 24.0 mmol/L 21.0-32.0 [facility] Free T4 [Mass/Vol] 0.78 ng/dL 0.76-1.46 [facility] Urea nitrogen/Creatinine [Mass ratio] 20.2 mg/mg 08-06 [facility] No Panel InformationOrdered By: Dr. Gentile on 10-20-2022 Estimated GFR (MDRD) Amer 94 mL/min >60 [facility] Comment on above: GFR Calc Estimated GFR (MDRD) Non-Af Amer 78 mL/min >60 [facility] Comment on above: Non- GFR Calc Free Triiodothyronine (T3) pg/dL 2.5 pg/mL 2.18-3.98 [facility] Thyroid Stimulating Hormone (TSH) 7.94 uIU/mL 0.358-3.74 [facility] Serum or plasma calcium fay urement (mass/volume)Ordered By: Dr. Gentile on 10-20-2022 Calcium [Mass/Vol] 9.2 mg/dL 8.5-10.1 [facility] Serum or plasma creatinine m easurement (mass/volume)Ordered By: Dr. Gentile on 10-20-2022 Creatinine [Mass/Vol] 0.79 mg/dL 0.55-1.02 [facility] Comment on above: The validity of the calculated GFR & GFRAA in patients over 70 years has not been determined. Clinical correlation is essential. Serum or plasma urea nitroge n measurement (mass/volume)Ordered By: Dr. Gentile on 10-20-2022 Urea nitrogen [Mass/Vol] 16 mg/dL 7-18 [facility] Thin prep Papanicolaou smear with manual screeningOrdered By: Dr. Gentile on 10-20-2022 Thin prep Papanicolaou smear with manual screening 10 5-15 [facility] Whole blood hemoglobin A1c/t otal hemoglobin ratio (mass fraction)Ordered By: Dr. Gentile on 10-20-2022 HbA1c (Bld) [Mass fraction] 6.2 % 3.8-5.6 [facility] Comment on above: Normal < 5.7 % Predi abetic 5.7 - 6.4 % Diabetic >or= 6.5 % Please note range changes. Basophil percentageon 2021 Chloride [Moles/Vol] 106 mmol/L 98-107 [facility] Work Phone: Glucose [Mass/Vol] 93 mg/dL 74-106 [facility] Work Phone: Potassium [Moles/Vol] 4.6 mmol/L 3.5-5.1 [facility] Work Phone: Sodium [Moles/Vol] 140 mmol/L 136-145 [facility] Work Phone: Laboratory - Chemistry and C hemistry - challengeon 2022 CO2 [Moles/Vol] 27.0 mmol/L 21.0-32.0 [facility] Work Phone: Free T4 [Mass/Vol] 0.75 ng/dL 0.76-1.46 [facility] Work Phone: Urea nitrogen/Creatinine [Mass ratio] 29.5 mg/mg 10-20 [facility] Work Phone: No Panel Informationon 06-19 Estimated GFR (MDRD) Amer 113 mL/min >60 [facility] Work Phone: Comment on above: GFR Calc Estimated GFR (MDRD) Non-Af Amer 93 mL/min >60 [facility] Work Phone: Comment on above: Non- GFR Calc Free Triiodothyronine (T3) pg/dL 2.3 pg/mL 2.18-3.98 [facility] Work Phone: Thyroid Stimulating Hormone (TSH) 8.52 uIU/mL 0.358-3.74 [facility] Work Phone: Serum or plasma calcium fay urement (mass/volume)on 2022 Calcium [Mass/Vol] 9.2 mg/dL 8.5-10.1 [facility] Work Phone: Serum or plasma creatinine m easurement (mass/volume)on 2022 Creatinine [Mass/Vol] 0.68 mg/dL 0.55-1.02 [facility] Work Phone: Comment on above: The validity of the calculated GFR & GFRAA in patients over 70 years has not been determined. Clinical correlation is essential. Serum or plasma urea nitroge n measurement (mass/volume)on 2022 Urea nitrogen [Mass/Vol] 20 mg/dL 7-18 [facility] Work Phone: Thin prep Papanicolaou smear with manual screeningon 2022 Thin prep Papanicolaou smear with manual screening 7 5-15 [facility] Work Phone: Whole blood hemoglobin A1c/t otal hemoglobin ratio (mass fraction)on 2022 HbA1c (Bld) [Mass fraction] 6.4 % 3.8-5.6 [facility] Work Phone: Comment on above: Normal < 5.7 % Predi abetic 5.7 - 6.4 % Diabetic >or= 6.5 % Please note range changes. Basophil percentageon 2021 Chloride [Moles/Vol] 107 mmol/L 98-107 [facility] Work Phone: Glucose [Mass/Vol] 94 mg/dL 74-106 [facility] Work Phone: Potassium [Moles/Vol] 4.6 mmol/L 3.5-5.1 [facility] Work Phone: Sodium [Moles/Vol] 139 mmol/L 136-145 [facility] Work Phone: Laboratory - Chemistry and C hemistry - challengeon 03-12-2022 CO2 [Moles/Vol] 27.0 mmol/L 21.0-32.0 [facility] Work Phone: Free T4 [Mass/Vol] 0.81 ng/dL 0.76-1.46 [facility] Work Phone: Urea nitrogen/Creatinine [Mass ratio] 15.7 mg/mg 10-20 [facility] Work Phone: No Panel Informationon 03-12 Estimated GFR (MDRD) Amer 98 mL/min >60 [facility] Work Phone: Comment on above: GFR Calc Estimated GFR (MDRD) Non-Af Amer 81 mL/min >60 [facility] Work Phone: Comment on above: Non- GFR Calc Free Triiodothyronine (T3) pg/dL 2.5 pg/mL 2.18-3.98 [facility] Work Phone: Thyroid Stimulating Hormone (TSH) 9.14 uIU/mL 0.358-3.74 [facility] Work Phone: Serum or plasma calcium fay urement (mass/volume)on 03-12-2022 Calcium [Mass/Vol] 9.3 mg/dL 8.5-10.1 [facility] Work Phone: Serum or plasma creatinine m easurement (mass/volume)on 03-12-2022 Creatinine [Mass/Vol] 0.76 mg/dL 0.55-1.02 [facility] Work Phone: Comment on above: The validity of the calculated GFR & GFRAA in patients over 70 years has not been determined. Clinical correlation is essential. Serum or plasma urea nitroge n measurement (mass/volume)on 03-12-2022 Urea nitrogen [Mass/Vol] 12 mg/dL 7-18 [facility] Work Phone: Thin prep Papanicolaou smear with manual screeningon 03-12-2022 Thin prep Papanicolaou smear with manual screening 5 5-15 [facility] Work Phone: Whole blood hemoglobin A1c/t otal hemoglobin ratio (mass fraction)on 03-12-2022 HbA1c (Bld) [Mass fraction] 6.5 % 3.8-5.6 [facility] Work Phone: Comment on above: Normal < 5.7 % Predi abetic 5.7 - 6.4 % Diabetic >or= 6.5 % Please note range changes. .Auto Diffon 10-05-2021 Basophil, Absolute 0.00 10 3/mcL Normal 0.00-0.19 [facility] ([place]) Comment on above: Performed By: #### B MP, GFR, CBC, ADIFF, ANEU #### [facility] [address] [address] Basophils/100 WBC (Bld) 0.2 % Normal 0.0-2.5 A [facility] ([place]) Comment on above: Performed By: #### B MP, GFR, CBC, ADIFF, ANEU #### [address] [address] Eosinophil, Absolute 0.00 10 3/mcL Normal 0.00-0.40 A [facility] ([place]) Comment on above: Performed By: #### B MP, GFR, CBC, ADIFF, ANEU #### [address] [address] Eosinophils/100 WBC (Bld) 0.0 % Normal 0.0-7.0 [facility] ([place]) Comment on above: Performed By: #### B MP, GFR, CBC, ADIFF, ANEU #### [address] [address] Lymphocyte, Absolute 0.70 10 3/mcL Low 0.77-3.85 A [facility] ([place]) Comment on above: Performed By: #### B MP, GFR, CBC, ADIFF, ANEU #### [address] [address] Lymphocytes/100 WBC (Bld) 15.6 % Normal 10.0-50.0 [facility] ([place]) Comment on above: Performed By: #### B MP, GFR, CBC, ADIFF, ANEU #### [address] [address] Monocyte, Absolute 0.70 10 3/mcL Normal 0.15-1.00 [facility] ([place]) Comment on above: Performed By: #### B MP, GFR, CBC, ADIFF, ANEU #### [address] [address] Monocytes/100 WBC (Bld) 15.2 % High 1.7-13.0 A [facility] ([place]) Comment on above: Performed By: #### B MP, GFR, CBC, ADIFF, ANEU #### [address] [address] Neutrophils/100 WBC (Bld) 69.0 % Normal 37.0-80.0 [facility] ([place]) Comment on above: Performed By: #### B MP, GFR, CBC, ADIFF, ANEU #### [address] [address] .GFRon 10-05-2021 GFR 110 ml/min/1.73sqm Normal [facility] ([place]) Comment on above: Result Comment: GFR Population mean for , Non- Americans Ages 20-29 = 116 mL/min/1.73 sq.m. Ages 30-39 = 107 mL/min/1.73 sq.m. Ages 40-49 = 99 mL/min/1.73 sq.m. Ages 50-59 = 93 mL/min/1.73 sq.m. Ages 60-69 = 85 mL/min/1.73 sq.m. Ages 70+ = 75 mL/min/1.73 sq.m. Chronic Kidney Disease: Less than 60 mL/min/1.73 square meters End Stage Renal Disease: Less than 15 mL/min/1.73 square meters Performed By: #### B MP, GFR, CBC, ADIFF, ANEU #### [address] [address] GFR Non- 90 ml/min/1.73sqm Normal [facility] ([place]) Comment on above: Result Comment: GFR Population mean for , Non- Americans Ages 20-29 = 116 mL/min/1.73 sq.m. Ages 30-39 = 107 mL/min/1.73 sq.m. Ages 40-49 = 99 mL/min/1.73 sq.m. Ages 50-59 = 93 mL/min/1.73 sq.m. Ages 60-69 = 85 mL/min/1.73 sq.m. Ages 70+ = 75 mL/min/1.73 sq.m. Chronic Kidney Disease: Less than 60 mL/min/1.73 square meters End Stage Renal Disease: Less than 15 mL/min/1.73 square meters Performed By: #### B MP, GFR, CBC, ADIFF, ANEU #### [address] [address] .NEUABSon 10-05-2021 Neutrophil, Absolute 3.00 10 3/mcL Normal 2.85-6.16 A [facility] ([place]) Comment on above: Performed By: #### B MP, GFR, CBC, ADIFF, ANEU #### [address] [address] BMPon 10-05-2021 BUN/Creatinine Ratio 21 ratio Normal 7-27 [facility] ([place]) Comment on above: Performed By: #### B MP, GFR, CBC, ADIFF, ANEU #### [address] [address] Calcium [Mass/Vol] 8.9 mg/dL Normal 8.4-10.2 [facility] ([place]) Comment on above: Performed By: #### B MP, GFR, CBC, ADIFF, ANEU #### [address] [address] Chloride [Moles/Vol] 95 mmol/L Low 98-107 [facility] ([place]) Comment on above: Performed By: #### B MP, GFR, CBC, ADIFF, ANEU #### [address] [address] CO2 [Moles/Vol] 28 mmol/L Normal 23-31 [facility] ([place]) Comment on above: Performed By: #### B MP, GFR, CBC, ADIFF, ANEU #### [address] [address] Creatinine [Mass/Vol] 0.66 mg/dL Normal 0.55-1.02 [facility] ([place]) Comment on above: Performed By: #### B MP, GFR, CBC, ADIFF, ANEU #### [address] [address] Electrolyte Balance 10.0 mEq/L Normal [facility] ([place]) Comment on above: Performed By: #### B MP, GFR, CBC, ADIFF, ANEU #### [address] [address] Glucose [Mass/Vol] 102 mg/dL Normal 80-115 [facility] ([place]) Comment on above: Performed By: #### B MP, GFR, CBC, ADIFF, ANEU #### [address] [address] Potassium [Moles/Vol] 4.5 mmol/L Normal 3.5-5.1 [facility] ([place]) Comment on above: Performed By: #### B MP, GFR, CBC, ADIFF, ANEU #### [address] [address] Sodium [Moles/Vol] 133 mmol/L Low 136-145 [facility] ([place]) Comment on above: Performed By: #### B MP, GFR, CBC, ADIFF, ANEU #### [address] [address] Urea nitrogen [Mass/Vol] 14 mg/dL Normal 7-18 [facility] ([place]) Comment on above: Performed By: #### B MP, GFR, CBC, ADIFF, ANEU #### [address] [address] CBCon 10-05-2021 Erythrocyte distribution width (RBC) [Ratio] 17.8 % High 11.5-14.5 [facility] ([place]) Comment on above: Performed By: #### B MP, GFR, CBC, ADIFF, ANEU #### [address] [address] Hematocrit (Bld) [Volume fraction] 39.6 % Normal 37.0-47.0 [facility] ([place]) Comment on above: Performed By: #### B MP, GFR, CBC, ADIFF, ANEU #### [address] [address] Hgb 12.5 G/dL Normal 12.0-16.0 [facility] ([place]) Comment on above: Performed By: #### B MP, GFR, CBC, ADIFF, ANEU #### [address] [address] MCH (RBC) [Entitic mass] 23.2 pg Low 27.0-31.2 [facility] ([place]) Comment on above: Performed By: #### B MP, GFR, CBC, ADIFF, ANEU #### [address] [address] MCHC 31.6 G/dL Low 33.0-37.0 [facility] ([place]) Comment on above: Performed By: #### B MP, GFR, CBC, ADIFF, ANEU #### [address] [address] MCV (RBC) [Entitic vol] 73.4 fL Low 80.0-94.0 A [facility] ([place]) Comment on above: Performed By: #### B MP, GFR, CBC, ADIFF, ANEU #### [address] [address] Platelet 253 10 3/mcL Normal 130-400 [facility] ([place]) Comment on above: Performed By: #### B MP, GFR, CBC, ADIFF, ANEU #### [address] [address] Platelet mean volume (Bld) [Entitic vol] 8.2 fL Normal 7.4-10.4 [facility] ([place]) Comment on above: Performed By: #### B MP, GFR, CBC, ADIFF, ANEU #### [address] [address] RBC 5.39 10 6/mcL Normal 4.20-5.40 [facility] ([place]) Comment on above: Performed By: #### B MP, GFR, CBC, ADIFF, ANEU #### [address] [address] WBC 4.30 10 3/mcL Low 4.60-10.80 [facility] ([place]) Comment on above: Performed By: #### B MP, GFR, CBC, ADIFF, ANEU #### [address] [address] LABORATORYOrdered By: Anjelica Jj on 10-05-2021 Basophil, Absolute 0.00 103/mcL Invalid Interpretation Code 0.00 - 0.19 10^3/mcL AO Auto Heme SS Basophils/100 WBC (Bld) 0.2 % Invalid Interpretation Code 0.0 - 2.5 % AO Auto Heme SS Calcium [Mass/Vol] 8.9 mg/dL Invalid Interpretation Code 8.4 - 10.2 mg/dL AO ADM SS Chloride [Moles/Vol] 95 mmol/L Invalid Interpretation Code 98 - 107 mmol/L AO ADM SS CO2 [Moles/Vol] 28 mmol/L Invalid Interpretation Code 23 - 31 mmol/L AO ADM SS Creatinine [Mass/Vol] 0.66 mg/dL Invalid Interpretation Code 0.55 - 1.02 mg/dL AO ADM SS Electrolyte Balance 10.0 mEq/L Invalid Interpretation Code AO ADM SS Eosinophil, Absolute 0.00 103/mcL Invalid Interpretation Code 0.00 - 0.40 10^3/mcL AO Auto Heme SS Eosinophils/100 WBC (Bld) 0.0 % Invalid Interpretation Code 0.0 - 7.0 % AO Auto Heme SS Erythrocyte distribution width (RBC) [Ratio] 17.8 % Invalid Interpretation Code 11.5 - 14.5 % AO Auto Heme SS Glucose [Mass/Vol] 102 mg/dL Invalid Interpretation Code 80 - 115 mg/dL AO ADM SS Hematocrit (Bld) [Volume fraction] 39.6 % Invalid Interpretation Code 37.0 - 47.0 % AO Auto Heme SS Hemoglobin (Bld) [Mass/Vol] 12.5 G/dL Invalid Interpretation Code 12.0 - 16.0 G/dL AO Auto Heme SS Lymphocyte, Absolute 0.70 103/mcL Invalid Interpretation Code 0.77 - 3.85 10^3/mcL AO Auto Heme SS Lymphocytes/100 WBC (Bld) 15.6 % Invalid Interpretation Code 10.0 - 50.0 % AO Auto Heme SS MCH (RBC) [Entitic mass] 23.2 pg Invalid Interpretation Code 27.0 - 31.2 pg AO Auto Heme SS MCHC (RBC) [Mass/Vol] 31.6 G/dL Invalid Interpretation Code 33.0 - 37.0 G/dL AO Auto Heme SS MCV (RBC) [Entitic vol] 73.4 fL Invalid Interpretation Code 80.0 - 94.0 fL AO Auto Heme SS Monocyte, Absolute 0.70 103/mcL Invalid Interpretation Code 0.15 - 1.00 10^3/mcL AO Auto Heme SS Monocytes/100 WBC (Bld) 15.2 % Invalid Interpretation Code 1.7 - 13.0 % AO Auto Heme SS Neutrophil, Absolute 3.00 103/mcL Invalid Interpretation Code 2.85 - 6.16 10^3/mcL AO Auto Heme SS Neutrophils/100 WBC (Bld) 69.0 % Invalid Interpretation Code 37.0 - 80.0 % AO Auto Heme SS Platelet mean volume (Bld) [Entitic vol] 8.2 fL Invalid Interpretation Code 7.4 - 10.4 fL AO Auto Heme SS Platelets (Bld) [#/Vol] 253 103/mcL Invalid Interpretation Code 130 - 400 10^3/mcL AO Auto Heme SS Potassium [Moles/Vol] 4.5 mmol/L Invalid Interpretation Code 3.5 - 5.1 mmol/L AO ADM SS RBC (Bld) [#/Vol] 5.39 106/mcL Invalid Interpretation Code 4.20 - 5.40 10^6/mcL AO Auto Heme SS Sodium [Moles/Vol] 133 mmol/L Invalid Interpretation Code 136 - 145 mmol/L AO ADM SS Urea nitrogen [Mass/Vol] 14 mg/dL Invalid Interpretation Code 7 - 18 mg/dL AO ADM SS Urea nitrogen/Creatinine [Mass ratio] 21 ratio Invalid Interpretation Code 7 - 27 ratio AO ADM SS WBC (Bld) [#/Vol] 4.30 103/mcL Invalid Interpretation Code 4.60 - 10.80 10^3/mcL AO Auto Heme SS LABORATORYOrdered By: SYSTEM SYSTEM on 10-05-2021 GFR 110 ml/min/1.73sqm Invalid Interpretation Code AO Chemistry S GFR Non- 90 ml/min/1.73sqm Invalid Interpretation Code AO Chemistry S Vital Signs Date Time Vital Sign Value Performing Clinician Facility 07-03-2025 09:36-0400 Body height 167.[address] Jil Gentile DO Work Phone: [facility] 07-03-2025 09:36-0400 Body mass index (BMI) [Ratio] 26.6 kg/m2 Dr. Jil Gentile DO Work Phone: [facility] 07-03-2025 09:36-0400 Body temperature 97.5 [degF] Dr. Jil Gentile DO Work Phone: [facility] 07-03-2025 09:36-0400 Body weight 74.[address] Jil Gentile DO Work Phone: [facility] 07-03-2025 09:36-0400 Diastolic blood pressure 76 mm[Hg] Dr. Jil Gentile DO Work Phone: [facility] 07-03-2025 09:36-0400 Heart rate 70 /min Dr. Jil Gentile DO Work Phone: [facility] 07-03-2025 09:36-0400 Respiratory rate 16 /min Dr. Jil Gentile DO Work Phone: [facility] 07-03-2025 09:36-0400 SaO2% (BldA) [Mass fraction] 93 % Dr. Jil Gentile DO Work Phone: [facility] 07-03-2025 09:36-0400 Systolic blood pressure 120 mm[Hg] Dr. Jil Gentile DO Work Phone: [facility] 04-27-2025 09:35-0400 Body height 167.[address] Jil Gentile DO Work Phone: [facility] 04-27-2025 09:35-0400 Body mass index (BMI) [Ratio] 29.2 kg/m2 Dr. Jil Gentile DO Work Phone: [facility] 04-27-2025 09:35-0400 Body temperature 97.9 [degF] Dr. Jil Gentile DO Work Phone: [facility] 04-27-2025 09:35-0400 Body weight 82.[address] Jil Gentile DO Work Phone: [facility] 04-27-2025 09:35-0400 Diastolic blood pressure 78 mm[Hg] Dr. Jil Gentile DO Work Phone: [facility] 04-27-2025 09:35-0400 Heart rate 61 /min Dr. Jil Gentile DO Work Phone: [facility] 04-27-2025 09:35-0400 Respiratory rate 16 /min Dr. Jil Gentile DO Work Phone: [facility] 04-27-2025 09:35-0400 SaO2% (BldA) [Mass fraction] 97 % Dr. Jil Gentile DO Work Phone: [facility] 04-27-2025 09:35-0400 Systolic blood pressure 124 mm[Hg] Dr. Jil Gentile DO Work Phone: [facility] 03-13-2025 09:30-0400 Body height 167.[address] Jil Gentile DO Work Phone: [facility] 03-13-2025 09:30-0400 Body mass index (BMI) [Ratio] 31.8 kg/m2 Dr. Jil Gentile DO Work Phone: [facility] 03-13-2025 09:30-0400 Body temperature 98 [degF] Dr. Jil Gentile DO Work Phone: [facility] 03-13-2025 09:30-0400 Body weight 89.[address] Jil Gentile DO Work Phone: [facility] 03-13-2025 09:30-0400 Diastolic blood pressure 92 mm[Hg] Dr. Jil Gentile DO Work Phone: [facility] 03-13-2025 09:30-0400 Heart rate 69 /min Dr. Jil Gentile DO Work Phone: [facility] 03-13-2025 09:30-0400 Respiratory rate 18 /min Dr. Jil Gentile DO Work Phone: [facility] 03-13-2025 09:30-0400 SaO2% (BldA) [Mass fraction] 97 % Dr. Jil Gentile DO Work Phone: [facility] 03-13-2025 09:30-0400 Systolic blood pressure 144 mm[Hg] Dr. Jil Gentile DO Work Phone: [facility] 05-20-2023 13:55-0400 Body height 167.[address] Jil Gentile Work Phone: [facility] 05-20-2023 13:55-0400 Body mass index (BMI) [Ratio] 33.5 kg/m2 Dr. Jil Gentile Work Phone: [facility] 05-20-2023 13:55-0400 Body temperature 97.3 [degF] Dr. Jil Gentile Work Phone: [facility] 05-20-2023 13:55-0400 Body weight 94.[address] Jil Gentile Work Phone: [facility] 05-20-2023 13:55-0400 Diastolic blood pressure 84 mm[Hg] Dr. Jil Gentile Work Phone: [facility] 05-20-2023 13:55-0400 Heart rate 72 /min Dr. Jil Gentile Work Phone: [facility] 05-20-2023 13:55-0400 Respiratory rate 16 /min Dr. Jil Gentile Work Phone: [facility] 05-20-2023 13:55-0400 SaO2% (BldA) [Mass fraction] 98 % Dr. Jil Gentile Work Phone: [facility] 05-20-2023 13:55-0400 Systolic blood pressure 128 mm[Hg] Dr. Jil Gentile Work Phone: [facility] 03-26-2022 09:01-0400 Body height 167.[address] Jil Gentile Work Phone: [facility] Work Phone: 03-26-2022 09:01-0400 Body mass index (BMI) [Ratio] 32.1 kg/m2 Dr. Jil Gentile Work Phone: [facility] Work Phone: 03-26-2022 09:01-0400 Body temperature 97.2 [degF] Dr. Jil Gentile Work Phone: [facility] Work Phone: 03-26-2022 09:01-0400 Body weight 90.[address] Jli Gentile Work Phone: [facility] Work Phone: 03-26-2022 09:01-0400 Diastolic blood pressure 80 mm[Hg] Dr. Jil Gentile Work Phone: [facility] Work Phone: 03-26-2022 09:01-0400 Heart rate 74 /min Dr. Jil Gentile Work Phone: [facility] Work Phone: 03-26-2022 09:01-0400 Respiratory rate 18 /min Dr. Jil Gentile Work Phone: [facility] Work Phone: 03-26-2022 09:01-0400 SaO2% (BldA) [Mass fraction] 98 % Dr. Jil Gentile Work Phone: [facility] Work Phone: 03-26-2022 09:01-0400 Systolic blood pressure 120 mm[Hg] Dr. Jil Gentile Work Phone: [facility] Work Phone: 10-05-2021 15:44-0500 Body temperature 100.04 [degF] DR DAVE SR MD [facility] 10-05-2021 15:44-0500 Diastolic blood pressure 88 mm[Hg] DR DAVE SR MD [facility] 10-05-2021 15:44-0500 Heart rate 87 /min DR DAVE SR MD [facility] 10-05-2021 15:44-0500 Respiratory rate 18 /min DR DAVE SR MD [facility] 10-05-2021 15:44-0500 Systolic blood pressure 125 mm[Hg] DR DAVE SR MD [facility] Encounters Encounter Date Encounter Type Care Provider Facility Start: 07-03-2025 End: 07-03-[address] Jil Gentile DO Work Phone: -[facility] Start: 07-03-2025 End: 07-03-[address] Jil Styles DO -[facility] Work Phone: Start: 04-27-2025 End: 04-27-2025 Patient encounter procedure Sixto GOVEA -[facility] Work Phone: Start: 04-27-2025 End: 04-27-[address] Jil Gentile DO Work Phone: -[facility] Start: 03-13-2025 End: 03-13-[address] Jil Styles DO -[facility] Work Phone: Start: 03-13-2025 End: 03-13-[address] Jil Gentile DO Work Phone: [facility] Work Phone: Start: 03-08-2025 End: 03-08-[address] Jil Gentile DO Work Phone: [facility] Work Phone: Start: 03-08-2025 End: 03-08-[address] Jil Styles DO -[facility] Start: 03-08-2025 End: 03-08-2025 ambulatory Jil Gentile Facility:[facility] Start: 07-19-2024 End: 07-19-2024 ambulatory Jil Gentile Facility:[facility] Start: 07-19-2024 End: 07-19-2024 ambulatory Jil Gentile Facility:[facility] Start: 09-02-2023 End: 09-02-[address] Jil Gentile Work Phone: [facility] Work Phone: Start: 09-02-2023 End: 09-02-[address] [facility] Start: 05-20-2023 End: 05-20-[address] Jil Gentile Work Phone: [facility] Work Phone: Start: 03-05-2023 End: 03-05-2023 ambulatory [facility] Work Phone: Start: 03-05-2023 End: 03-05-[address] [facility] Start: 10-20-2022 End: 10-20-2022 ambulatory [facility] Work Phone: Start: 10-20-2022 End: 10-20-[address] [facility] Start: 2022 End: [address] Jil Gentile Work Phone: [facility] Work Phone: Start: 2022 End: [address] Jil Gentile Work Phone: [facility] Start: 03-26-2022 End: 03-26-[address] Jil Gentile Work Phone: [facility] Start: 03-12-2022 End: 03-12-[address] Jil Gentile Work Phone: [facility] Start: 10-05-2021 End: 10-05-2021 Emergency department patient visit DR DAVE SR MD [facility] Procedures Date Procedure Procedure Detail Performing Clinician Breast biopsy and re lated procedures DR DAVE SR MD Comment on above: Left Esophagogastroduodenoscopy D R DAVE SR MD Plan of Treatment Date Care Activity Detail Author Start: 07-03-2025 T4 free measurement [facility] Start: 07-03-2025 Thyroid stimulating hormone measurement [facility] Start: 07-03-2025 [facility] Thyroglobulin antibo dy measurement [facility] Thyroperoxidase Ab [ Units/volume] in Serum or Plasma [facility] Payers Date Payer Category Payer Self-pay [id number] 2024 Unknown [id number] Unknown [id number] [facility] [id number] Unknown [id number] Unknown [id number] Unknown [id number] [id number] Unknown [id number] Unknown [id number] [id number] [id number] Social History Date Type Detail Facility Start: 05-20-2023 Never smoked amara bartholomew (finding) [facility] Sex Assigned At [facility] Start: 03-26-2022 End: 05-20-2023 Tobacco smoking status NHIS Unknown if ever smoked [facility] Start: 1960 Sex Assigned At Female [facility] Progress note 07-03-2025 Note Date & Type Note Facility 07-03-2025 Progress note [facility] Progress note 07-03-2025 Note Date & Type Note Facility 07-03-2025 Progress note Note Date/Time July 03, 2025 10:07am [facility] [address] [place] [id number] OFFICE VISIT Date of Service: 07/03/25 MR#: [id number] Acct: [id number] Name: ETELVINA BUTCHER Rep #: [id number] : 1960 Provider: Dr. Davide Gentile DO Age/Sex: 65/F Location: [facility] Status: Signed Intake Vital Signs 04/27/25 09:35 07/03/25 09:36 Height 5 ft 6 in 5 ft 6 in Weight: 181 lb 165 lb BMI 29.2 26.6 BP 124/78 H 120/76 Blood Pressure Location Lt brachial Lt brachial Position Sitting Sitting Respiration 16 16 Pulse 61 70 Pulse Source Monitor Monitor Temp 97.9 F 97.5 F L Temp Source Temporal Temporal Pulse Oximetry (%) 97 93 Oxygen Delivery Method room air Intake Visit Reasons: 3 MONTH FOLLOW UP Chief Complaint: F/U Ui Developer With [employer] Required: No Is patient in pain?: No Allergies No Known Allergies Allergy (Verified 07/03/25 09:35) Medications ?Medication ?Instructions ?Recorded ?Confirmed ?Type tirzepatide (weight loss) 5 mg/0.5 5 mg (0.5 mL) subcu t QWEEK 4 weeks 05/22/25 07/03/25 Rx mL subcutaneous solution #2 mL Have you fallen in the past year?: No PFSH Medical History (Updated 07/03/25 @ 10:[address] Jil Gentile DO) Hypothyroid Hypertension Surgical History History of breast biopsy Family History Grandmother Hypertension CVA (cerebral vascular accident) Aunt Hypertension Social History Smoking Status: Never smoker alcohol intake: never substance use type: does not use what type of physical activity do you participate in: walking HPI HPI Chief Complaint: F/U Details: ETELVINA BUTCHER, is a 65 F who presents to the office today for a follow-up exam after being placed on Zepbound. She has lost about 35 pounds. She no longer has plantar fasciitis and the pain that she has had for a long time in her left leg is gone. She has not had any constipation or nausea problems and feels verywell. ROS Const Constitutional: No body ache, chills, excessive sweating, fatigue, fever(s), frequent falls, headache(s), snoring, weakness, sleep problems or change in appetite Eyes Eyes: No blurry vision, change in vision, eye pain or Light sensitivity ENT ENT: No abnormal hearing, ear or mastoid pain, tinnitus, nasal congestion, headache(s), neck pain or sore throat Resp Respiratory: No cough, shortness of breath, snoring or wheezing Cardio Cardiology: No chest pain at rest, chest pain with exertion, excessive sweating,shortness of breath, dyspnea on exertion, lightheadedness, orthopnea or palpitations Gastro GI: No abdominal pain, change in bowel habits, constipation, cramping, diarrhea,nausea/dyspepsia or vomiting Genitourinary-Female: No burning urination, painful urination, urinary incontinence, urinary frequency, abnormal vaginal bleeding or pelvic pain Musc Musculoskeletal: No abnormal gait, joint pain, back pain, limited range of motion, neck pain or numbness Skin Skin: No dry skin, redness, lesions, itchy eyes, rash or wounds Neuro Neurology: No abnormal gait, abnormal hearing, weakness, frequent falls, headache(s), memory loss or numbness Psych Psychiatric: No anxiety, No change in appetite, No depression, No memory loss and No Thoughts of harming yourself/Others Endo Endocrine: No cold intolerance, excessive sweating, fatigue, flushing, heat intolerance, increased thirst/drinking or increased hunger Aller/Imm Allergy/Immunologic: No itchy eyes, seasonal allergy symptoms, hives or wheezing Massimo/Lymp Hematologic/Lymphatic: No easy bleeding, easy bruising, enlarged lymph nodes or other Exam Const General: cooperative, healthy appearing, comfortable, no acute distress, well developed and well groomed Nutritional Appearance: overweight Orientation: alert, awake and oriented x3 HENMT Ears: hearing grossly normal bilaterally Eyes General: appearance normal, both eyes and all related structures Neck Neck: no lymphadenopathy, supple and nontender Resp Effort & Inspection: normal respiratory effort, able to speak in complete sentences, symmetric chest movement and normal respiratory pattern Auscultation: Bilateral: Clear to Auscultation Cardio Rate: regular rate Rhythm: regular rhythm Heart Sounds: no murmurs Bruits: no carotid bruits Pulses: radial pulses present bilaterally 2+ Musc Musculoskeletal: No joint tenderness or decreased range of motion Skin General: no rashes or lesions noted Neuro General: patient alert, patient awake and patient oriented x3 Cognition: normal cognition Speech: speech normal Extrem General: normal to inspection Psych Appearance: grossly normal Mental Status: mental status grossly normal Results POC A1C POC A1C 5.7 % Last Edit by Floresita Avery MA on 07/03/25 09:45 Coding Level of Care Code Off vis,est,level 3 Diagnoses Elevated TSH R79.89 Prediabetes R73.03 Fatty liver disease, nonalcoholic K76.0 Essential hypertension I10 Hypertension type: essential hypertension Assessment and Plan Assessment and Plan (1) Elevated TSH: Status: Chronic Plan: After losing 35 pounds I will reevaluate her abnormal thyroid studies. (2) Prediabetes: Status: Acute Comment: She cannot continue to afford the $500 a month for Zepbound and is investigatinggetting molecule from unapproved sources. Plan: Her hemoglobin A1c is down to 5.7. (3) Fatty liver disease, nonalcoholic: Status: Chronic Plan: I am certain with the 35 pound weight loss her fatty liver is much improved. (4) Hypertension: Status: Chronic Qualifiers: Hypertension type: essential hypertension Qualified Code(s): I10 - Essential (primary) hypertension Plan: Her blood pressure is well-controlled on no medications. Orders: Orders POC A1C Today R73.03 - Prediabetes Thyroid Antibodies Today R79.89 - Other specified abnormal findings of blood chemistry Thyroid Stim Hormone (TSH) Today R79.89 - Other specified abnormal findings of blood chemistry Free T4 Today R79.89 - Other specified abnormal findings of blood chemistry Plan Details Follow Up: 3 Months Clinical Quality Measures Falls Risk Screening/Assistive Devices Have you fallen in the past year?: No 07/03/25 1007 <Electronically signed by Jil hurley DO> Date _ Jil Gentile DO Cosigner Signature: Date (if applicable) CC: ~ [facility] Work Phone: Evaluation note 03-13-2025 Note Date & Type Note Facility 03-13-2025 Evaluation note Diagnosis Onset Date Resolution Prediabetes acute March 13 9:21am Trochanteric bursitis of left hip acute March 13, 2025 9 :21am Fatty liver disease, nonalcoholic chronic March 13, 2025 9 :21am Hypertension chronic March 13 9:21am Hypothyroid chronic March 13 9:21am [facility] Work Phone: Evaluation note 03-13-2025 Note Date & Type Note Facility 03-13-2025 Evaluation note Diagnosis Onset Date Resolution Prediabetes acute March 13 9:21am Trochanteric bursitis of left hip acute March 13, 2025 9 :21am Fatty liver disease, nonalcoholic chronic March 13, 2025 9 :21am Hypertension chronic March 13 9:21am Hypothyroid chronic March 13 9:21am Fatty liver disease, nonalcoholic chronic April 27, 2025 9:27am Hypertension chronic April 27, 2 025 9:27am Prediabetes acute June 9:23am Elevated TSH chronic July 032024 9:23am Fatty liver disease, nonalcoholic chronic July 03, 2025 9:23am Hypertension chronic July 032024 9:23am [facility] Work Phone: Hospital Discharge instructions 10-05-2021 Note Date & Type Note Facility 10-05-2021 Hospital Discharg e instructions Patient Education 10/05/2021 17:51:28 Dehydration Dehydration The human body is comprised largely of water. If you lose more fluids than you take in, you can become dehydrated. This means there are not enough fluids in your body for it to function right. Mild dehydration can cause weakness, confusion, or muscle cramps. In extreme cases, it can lead to brain damage and even . That's why prompt treatment is crucial. Risk factors Anyone can become dehydrated. But infants, children, and older adults are at greatest risk. You are most likely to lose fluids with severe vomiting, diarrhea, or a fever. Exercising or working hard especially in hot weather can also cause excess fluid loss. What to do Drinking liquids is the best way to prevent dehydration. Water is best, but juice or frozen pops can also help. For adults, don't use liquids that contain caffeine or alcohol to rehydrate. Your doctor may suggest electrolyte solutions for sick infants and young children. When to go to the emergency room (ER) Go to an ER right away for these symptoms: Adults Very dark urine and little urine output Dizziness, weakness, confusion, fainting Children Sunken eyes Little or no urine output (for infants, no wet diaper in 8 hours) Very dark urine Skin that doesn't bounce back quickly when pinched Crying without tears Lethargy, decreased activity, or increased sleepiness What to expect in the emergency room Your blood pressure, temperature, and heart rate will be checked. You may have blood or urine tests. The main treatment for dehydration is fluids. You may be given these to drink. Or, you may receive them through a vein in your arm. You also may be treated for diarrhea, vomiting, or a high fever. [id number] The [employer]. [address] [place] [address]. All rights reserved. This information is not intended as a substitute for professional medical care. Always follow your healthcare professional's instructions. Follow Up Care 10/05/2021 15:33:28 With:JIL GENTILE DO Address: [facility] [address] [place] [phone] When:2-4 days [facility] Evaluation + Plan note Note Date & Type Note Facility Evaluation + Plan note No data available for this section [facility] Evaluation note Note Date & Type Note Facility Evaluation note Diagnosis Onset Date Prediabetes acute Hypertension [facility] Work Phone: Evaluation note Note Date & Type Note Facility Evaluation note No assessment information availa ble [facility] Work Phone: Evaluation note Note Date & Type Note Facility Evaluation note Diagnosis Onset Date Prediabetes acute Hypertension chronic Hypothyroid [facility] Work Phone: Reason for referral (narrative) Note Date & Type Note Facility Reason for referral (narrative) No reason for referral information available [facility] Work Phone: Summary Purpose Family History Relationship Condition Age at Onset Recorded Date/T germania grandmother Hypertension Unknown Cerebrovascular accident (CVA) Unknown aunt Hypertension Unknown Advance Directives No Advanced Directives Records FoundNo Advanced Directives Records Found Chief Complaint and Reason for Visit Chief Complaint Admit Date go over labs March 13, 2025 9:21a m ACUTE - 7 WK FU April 27, 2025 9:27 am Reason for Visit Admit Date Prediabetes March 13, 2025 9:21a m Trochanteric bursitis of left hip March 132024 9:21am Fatty liver disease, nonalcoholic March 132024 9:21am Hypertension March 13, 2025 9:21a m Hypothyroid March 13, 2025 9:21a m Chief Complaint BP AND MED REFILLS Reason for Visit Prediabetes Hypertension Chief Complaint LABWORK Chief Complaint MED CHECK / REFILL Reason for Visit Prediabetes Hypertension Hypothyroid Chief Complaint Admit Date go over labs March 13, 2025 9:21a m Chief Complaint Admit Date go over labs March 13, 2025 9:21a m ACUTE - 7 WK FU April 27, 2025 9:27 am 3 MONTH FOLLOW UP July 03, 2025 9:23am Reason for Visit Admit Date Prediabetes March 13, 2025 9:21a m Trochanteric bursitis of left hip March 132024 9:21am Fatty liver disease, nonalcoholic March 132024 9:21am Hypertension March 13, 2025 9:21a m Hypothyroid March 13, 2025 9:21a m Fatty liver disease, nonalcoholic April 172024 9:27am Hypertension April 27, 2025 9:27 am Prediabetes July 03, 2025 9:23am Elevated TSH July 03, 2025 9:23am Fatty liver disease, nonalcoholic Septem quique 2024 9:23am Hypertension July 03, 2025 9:23am Additional Source Comments INFORMATION SOURCE (unrecogn ized section and content) DATE CREATED AUTHOR 10/05/2021 [facility] ([place]) DATE CREATED AUTHOR AUTHOR'S ORGANIZ ATION 05/01/2025 [facility] Goals (unrecognized section and content) Goals may be documented in a n alternate section Care Teams (unrecognized sec tion and content) Team Status: Active Member Role Status Dates Dr. Jil Gentile , DO Family Provider Active Dr. Jil Gentile , DO Primary Care Provider Active Team Status: Inactive Member Role Status Dates Dr. Jil Gentile , DO Primary Care Provider, Attend ing Provider Active Team Status: Inactive Member Role Status Dates Dr. Jil Gentile , Primary Care Provider Active OLGA SANTANA Attending Provider, Referring Provider Ac tive Team Status: Inactive Member Role Status Dates Dr. Jil Gentile , DO Primary Care Pr ovider, Attending Provider, Referring Provider Active Team Status: Active Member Role Status Dates Dr. Jil Gentile , Primary Care Provider Active Start: March 08, 2025 Dr. Jil Gentile , Attending Provider Active Start: March 08, 2025 Dr. Jil Gentile , Referring Provider Active Start: March 08, 2025 Team Status: Inactive Member Role Status Dates Dr. Jil Gentile DO Primary Care Provider Active Start: March 13, 2025 End: March 13, 2025 Dr. Jil Gentile , Attending Provider Active Start: March 13, 2025 End: March 13, 2025 Dr. Jil Gentile , Referring Provider Active Start: March 13, 2025 End: March 13, 2025 Team Status: Inactive Member Role Status Dates Dr. Jil Gentile DO Primary Care Provider Active Start: March 08, 2025 End: March 08, 2025 Dr. Jil Gentile , Attending Provider Active Start: March 08, 2025 End: March 08, 2025 Dr. Jil Gentile DO Referring Provider Active Start: March 08, 2025 End: March 08, 2025 Team Status: Active Member Role/Relationship Status Dates Dr. Jil Gentile DO Family Provider Active Dr. Jil Gentile DO Primary Care Provider Active Team Status: Inactive Member Role/Relationship Status Dates Dr. Jil Gentile DO Primary Care Provider Active Start: March 08, 2025 End: March 08, 2025 Dr. Jil Gentile DO Attending Provider Active Start: March 08, 2025 End: March 08, 2025 Dr. Jil Gentile DO Referring Provider Active Start: March 08, 2025 End: March 08, 2025 Team Status: Inactive Member Role/Relationship Status Dates Dr. Jil Gentile DO Primary Care Provider Active Start: March 13, 2025 End: March 13, 2025 Dr. Jil Gentile DO Attending Provider Active Start: March 13, 2025 End: March 13, 2025 Dr. Jil Gentile DO Referring Provider Active Start: March 13, 2025 End: March 13, 2025 Team Status: Inactive Member Role/Relationship Status Dates Dr. Jil Gentile DO Primary Care Provider Active Start: April 27, 2025 End: April 27, 2025 Dr. Jil Gentile DO Referring Provider Active Start: April 27, 2025 End: April 27, 2025 JEFERSON Jin Attending Provider Active St art: April 27, 2025 End: April 27, 2025 Team Status: Inactive Member Role/Relationship Status Dates Dr. Jil Gentile DO Primary Care Provider Active Start: July 03, 2025 End: July 03, 2025 Dr. Jil Gentile DO Attending Provider Active Start: July 03, 2025 End: July 03, 2025 Dr. Jil Gentile DO Referring Provider Active Start: July 03, 2025 End: July 03, 2025 Team Status: Active Member Role/Relationship Status Dates Dr. Jil Gentile DO Primary Care Provider Active Start: July 03, 2025 Dr. Jil Gentile DO Attending Provider Active Start: July 03, 2025 Dr. Jil Gentile DO Referring Provider Active Start: July 03, 2025 FOR RECORDS PERTAINING TO PATIENTS WHO ARE OR HAVE BEEN ENROLLED IN A CHEMICAL DEPENDENCY/SUBSTANCEABUSE PROGRAM, SOME INFORMATION MAY BE OMITTED. This clinical summary was aggregated from multiple sources. Caution should be exercised in using it in the provision of clinical care. This summary normalizes information from multiple sources, and as a consequence, information in this document may materially change the coding, format and clinical context of patient data. In addition, data may be omitted in some cases. CLINICAL DECISIONS SHOULD BE BASED ON THE PRIMARY CLINICAL RECORDS. [facility] [employer] [facility]. provides no warranty or guarantee of the accuracy or completeness of information in this document.
== END | disposition home or self-care (01) ==
LOC: BIMLAB 10:03
PROVIDERS: PCP Family Medicine; Referring Provider Family Medicine; Visit Provider Family Medicine
DX: R79.89 Other specified abnormal findings of blood chemistry (principal)
CPT/HCPCS: 36415; 84439; 84443; 86376; 86800